=== PATIENT | female | born 1965 | race Caucasian/White ===

== ENCOUNTER → 2018-06-08 | Outpatient (CLI) | payer BC ==
[~2018-06-08] MED LIST: ALBU2.5V52 INH; ALPR-557 GT; Alprazolam PO; BSP5T PO; CEFD300C3 PO; CPR500T PO; FEXO-14 PO; HYOS0.1217 PO; IBUP200T48 PO; LEVO750T24 PO; MTR500T PO; NFNEB10T PO; OXYC-12 PO; PRD20T PO; SERT50TA9 PO
[2018-06-08 08:25] LABS: BASOPHILS % (AUTO) 0 % (0-10); EOSINOPHILS # (AUTO) 0.2 10^3/uL (0.0-0.3); EOSINOPHILS % (AUTO) 3 % (0-10); HEMATOCRIT 41 % (35-52); HEMOGLOBIN 14.3 G/DL (11.5-16.0); LYMPHOCYTES # (AUTO) 2.2 X 10^3 (1.0-4.0); LYMPHOCYTES % (AUTO) 28 % (12-44); MEAN CORPUSCULAR HEMOGLOBIN 32 PG (25-34); MEAN CORPUSCULAR HGB CONC 35 G/DL (32-36); MEAN CORPUSCULAR VOLUME 91 FL (80-99); MEAN PLATELET VOLUME 9.1 FL (7.4-10.4); MONOCYTES # (AUTO) 0.6 X 10^3 (0.0-1.0); MONOCYTES % (AUTO) 8 % (0-12); NEUTROPHILS # (AUTO) 4.7 X 10^3 (1.8-7.8); NEUTROPHILS % (AUTO) 61 % (42-75); PLATELET COUNT 340 10^3/uL (130-400); RED BLOOD COUNT 4.51 10^6/uL (4.35-5.85); RED CELL DISTRIBUTION WIDTH 12.2 % (10.0-14.5); WHITE BLOOD COUNT 7.7 10^3/uL (4.3-11.0)
[2018-06-08 08:53] LABS: ALANINE AMINOTRANSFERASE 16 U/L (0-55); ALBUMIN 4.5 GM/DL (3.2-4.5); ALKALINE PHOSPHATASE 90 U/L (40-136); BILIRUBIN,TOTAL 0.4 MG/DL (0.1-1.0); BUN/CREATININE RATIO 14; CARBON DIOXIDE 24 MMOL/L (21-32); CHLORIDE 107 MMOL/L (98-107); CHOLESTEROL 193 MG/DL (< 200); CREATININE SERUM 0.86 MG/DL (0.60-1.30); GFR ESTIMATED > 60; GLUCOSE 103 MG/DL (70-105); HDL CHOLESTEROL 55 MG/DL (40-60); POTASSIUM 4.2 MMOL/L (3.6-5.0); SODIUM 140 MMOL/L (135-145); TRIGLYCERIDES 131 MG/DL (<150); URIC ACID 5.7 MG/DL (2.6-7.2); VLDL CHOLESTEROL 26 MG/DL (5-40)
[2018-06-08 09:14] LABS: FREE T4 (FREE THYROXINE) 1.11 NG/DL (0.70-1.48)
[2018-06-08 09:15] LABS: ERYTHROCYTE SEDIMENTATION RATE 33 MM/HR (0-30)
== END ==
LOC: LAB 07:47
PROVIDERS: ATTEND Family Medicine
DX: Z00.00 Encounter for general adult medical examination without abnormal findings (principal); R53.83 Other fatigue; M85.80 Other specified disorders of bone density and structure, unspecified site; M25.50 Pain in unspecified joint; D64.9 Anemia, unspecified; Z83.3 Family history of diabetes mellitus
CPT/HCPCS: 36415; 80053; 80061; 82306; 82607; 83036; 83540; 84439; 84443; 84550; 85025; 85652; 86038; 86060; 86430

== ENCOUNTER → 2018-06-15 | Outpatient (CLI) | payer BC ==
--- NOTE | 2018-06-15 17:07 | Diagnostic Imaging Report ---
INDICATION: Routine screening. Comparison is made with prior mammograms from 06/20/2015 and 08/27/2011. 2-D and 3-D bilateral screening mammography was performed. The current study was also evaluated with a Computer Aided Detection (CAD) system. FINDINGS: Scattered fibronodular densities are identified bilaterally. The parenchymal pattern is stable. No mass or malignant-appearing microcalcifications are seen. There are benign calcifications. The axillae are unremarkable. IMPRESSION: No mammographic features suspicious for malignancy are identified. ACR BI-RADS Category 2: Benign findings. Result letter will be mailed to the patient. Note: At least 10% of breast cancer is not imaged by mammography. Dictated by: Dictated on workstation # [id number]
== END ==
LOC: RAD 07:48
PROVIDERS: ATTEND Family Medicine
DX: Z12.31 Encounter for screening mammogram for malignant neoplasm of breast (principal)
CPT/HCPCS: 77067

== ENCOUNTER → 2019-11-15 | Outpatient (CLI) | payer BC ==
--- NOTE | 2019-11-15 19:50 | Diagnostic Imaging Report ---
INDICATION: Routine screening. Comparison is made with prior mammograms from 06/15/2018 and 06/20/2015. 2-D and 3-D bilateral screening mammography was performed. The current study was also evaluated with a Computer Aided Detection (CAD) system. 3-D tomosynthesis was also performed and reviewed. FINDINGS: Both breasts are heterogeneously dense, limiting the sensitivity of mammography. Right breast is unremarkable. A circumscribed nodule has developed in the superior left breast 6 to 7 cm from the nipple at approximately 12 o'clock location. Further evaluation with ultrasound is recommended. No spiculated mass or malignant-appearing microcalcifications are seen. Axillae are unremarkable. IMPRESSION: Circumscribed nodule at approximately 11-12 o'clock location of the left breast 6 to 7 cm from the nipple. This may represent a small cyst. Further evaluation with ultrasound is recommended. ACR BI-RADS Category 0: Incomplete. (Needs additional imaging evaluation). Result letter will be mailed to the patient. Note: At least 10% of breast cancer is not imaged by mammography. Dictated by: Dictated on workstation # [id number]
== END ==
LOC: RAD 15:32
PROVIDERS: ATTEND Family Medicine
DX: Z12.31 Encounter for screening mammogram for malignant neoplasm of breast (principal); N63.22 Unspecified lump in the left breast, upper inner quadrant
CPT/HCPCS: 77067

== ENCOUNTER → 2019-11-23 | Outpatient (CLI) | payer BC ==
--- NOTE | 2019-11-23 12:05 | Diagnostic Imaging Report ---
Indication: Left breast nodule. Studies performed for further evaluation. Correlation is made with mammogram from 11/15/2019. Sonographic interrogation upper left breast was performed. At 11:30 location, 6 cm from the nipple there is a circumscribed simple appearing cyst measuring 5 mm x 5 mm x 4 mm. This correlates with the nodule noted mammographically. No solid mass is seen. There is no internal vascularity. IMPRESSION: BI-RADS Category 2 Simple cyst 11:30 location left breast, 6 cm from the nipple. This correlates in size and location to the mammographic density. Patient may return to routine annual screening mammography. ACR BI-RADS Category 2: Benign findings. Dictated by: Dictated on workstation # [id number]
== END ==
LOC: RAD 10:53
PROVIDERS: ATTEND Family Medicine
DX: N60.02 Solitary cyst of left breast (principal)
CPT/HCPCS: 76642

== ENCOUNTER → 2020-04-29 | Outpatient (CLI) | payer BC ==
[2020-04-29 08:08] LABS: BASOPHILS % (AUTO) 0 % (0-10); EOSINOPHILS # (AUTO) 0.2 10^3/uL (0.0-0.3); EOSINOPHILS % (AUTO) 2 % (0-10); HEMATOCRIT 41 % (35-52); HEMOGLOBIN 13.9 G/DL (11.5-16.0); LYMPHOCYTES # (AUTO) 1.9 X 10^3 (1.0-4.0); LYMPHOCYTES % (AUTO) 23 % (12-44); MEAN CORPUSCULAR HEMOGLOBIN 31 PG (25-34); MEAN CORPUSCULAR HGB CONC 34 G/DL (32-36); MEAN CORPUSCULAR VOLUME 92 FL (80-99); MONOCYTES # (AUTO) 0.6 X 10^3 (0.0-1.0); MONOCYTES % (AUTO) 7 % (0-12); NEUTROPHILS # (AUTO) 5.5 X 10^3 (1.8-7.8); NEUTROPHILS % (AUTO) 68 % (42-75); PLATELET COUNT 362 10^3/uL (130-400); RED CELL DISTRIBUTION WIDTH 12.2 % (10.0-14.5); WHITE BLOOD COUNT 8.2 10^3/uL (4.3-11.0)
[2020-04-29 08:21] LABS: CHLORIDE 103 MMOL/L (98-107)
[2020-04-29 08:22] LABS: ALBUMIN 4.3 GM/DL (3.2-4.5); SODIUM 137 MMOL/L (135-145)
[2020-04-29 08:23] LABS: CALCIUM 9.4 MG/DL (8.5-10.1)
[2020-04-29 08:24] LABS: GLUCOSE 108 MG/DL (70-105); TOTAL PROTEIN 7.8 GM/DL (6.4-8.2); TRIGLYCERIDES 224 MG/DL (<150); VLDL CHOLESTEROL 45 MG/DL (5-40)
[2020-04-29 08:25] LABS: CARBON DIOXIDE 21 MMOL/L (21-32)
[2020-04-29 08:26] LABS: BILIRUBIN,TOTAL 0.6 MG/DL (0.1-1.0)
[2020-04-29 08:28] LABS: ALKALINE PHOSPHATASE 89 U/L (40-136); CREATININE SERUM 0.88 MG/DL (0.60-1.30); GFR ESTIMATED > 60
[2020-04-29 08:29] LABS: BUN/CREATININE RATIO 16; CHOLESTEROL 217 MG/DL (< 200)
[2020-04-29 08:30] LABS: HDL CHOLESTEROL 58 MG/DL (40-60)
[2020-04-29 08:31] LABS: ALANINE AMINOTRANSFERASE 18 U/L (0-55)
[2020-04-29 08:52] LABS: FREE T4 (FREE THYROXINE) 0.94 NG/DL (0.70-1.48)
== END ==
LOC: LAB 07:43
PROVIDERS: ATTEND Nurse Practitioner Family
DX: Z13.220 Encounter for screening for lipoid disorders (principal); Z00.00 Encounter for general adult medical examination without abnormal findings; I10 Essential (primary) hypertension; E55.9 Vitamin D deficiency, unspecified
CPT/HCPCS: 36415; 80053; 80061; 82306; 84439; 84443; 85025

== ENCOUNTER 2020-05-19 05:45 | Outpatient (RCR) | payer BC | END 2020-08-17 | disposition home or self-care (01) | LOC: PREOP 05:45 | PROVIDERS: ATTEND Surgery | DX: Z01.818 Encounter for other preprocedural examination (principal) ==

== ENCOUNTER → 2020-12-11 | Outpatient (CLI) | payer BC | LOC: LAB 07:34 | PROVIDERS: ATTEND Nurse Practitioner Family | DX: E55.9 Vitamin D deficiency, unspecified (principal) | CPT/HCPCS: 36415; 82306 ==

== ENCOUNTER → 2020-12-11 | Outpatient (CLI) | payer BC ==
[2020-12-11 08:20] LABS: ALANINE AMINOTRANSFERASE 18 U/L (0-55); ALKALINE PHOSPHATASE 97 U/L (40-136); BILIRUBIN,TOTAL 0.3 MG/DL (0.1-1.0); BUN/CREATININE RATIO 13; CALCIUM 9.1 MG/DL (8.5-10.1); CARBON DIOXIDE 21 MMOL/L (21-32); CHLORIDE 103 MMOL/L (98-107); CHOLESTEROL 189 MG/DL (< 200); CREATININE SERUM 0.92 MG/DL (0.60-1.30); GFR ESTIMATED > 60; GLUCOSE 105 MG/DL (70-105); HDL CHOLESTEROL 52 MG/DL (40-60); POTASSIUM 4.2 MMOL/L (3.6-5.0); SODIUM 136 MMOL/L (135-145); TOTAL PROTEIN 7.5 GM/DL (6.4-8.2); TRIGLYCERIDES 227 MG/DL (<150); VLDL CHOLESTEROL 45 MG/DL (5-40)
== END ==
LOC: LAB 07:31
PROVIDERS: ATTEND Family Medicine
DX: E78.5 Hyperlipidemia, unspecified (principal)
CPT/HCPCS: 36415; 80053; 80061

== ENCOUNTER 2021-03-02 05:40 | Outpatient (CLI) | payer BC ==
[~2021-03-02] VITALS: Ht 167.6 cm; Wt 79.1 kg
== END 2021-03-03 07:36 | disposition home or self-care (01) ==
LOC: PREOP 05:40 → EDSTATUS 08:30 → PREOP 03-03 07:36
PROVIDERS: ATTEND Surgery
DX: Z01.812 Encounter for preprocedural laboratory examination (principal); Z12.11 Encounter for screening for malignant neoplasm of colon

== ENCOUNTER 2021-03-09 06:54 | Day surgery (SDC) | payer BC ==
[~2021-03-09] VITALS: Ht 167.6 cm; Wt 79.1 kg
[~2021-03-09 06:54] MED LIST changes: +MIDAZOLAM 2 MG/2 ML (VERSED) VIAL ONE; +PROPOFOL INJECTION 50 ML IV ONE
[2021-03-09] MEDS ORDERED: LACTATED RINGERS 1,000 ML IV STA (07:11)
[2021-03-09] MEDS ORDERED: LACTATED RINGERS 1,000 ML IV ONE (07:12)
[2021-03-09 07:34] VITALS: BP 132/80
[2021-03-09] MEDS ORDERED: VENL37.52 PO (07:59)
[2021-03-09] MEDS ORDERED: PROPOFOL INJECTION 50 ML IV ONE (08:19)
[2021-03-09 08:50] VITALS: BP 99/56
[2021-03-09 08:55] VITALS: BP 108/69
[2021-03-09 09:00] VITALS: BP 112/72
--- NOTE | 2021-03-09 09:09 | Progress Note-Post Operative ---
Post-Operative Progess Note Surgeon (s)/Sack Sorter (s) Surgeon MARVIN OROZCO DO Sack Sorter: FANTASMA Albarran Pre-Operative Diagnosis screening colonoscopy Post-Operative Diagnosis polyps int hemorrhoids Procedure & Operative Findings Date of Procedure 03/09/21 Procedure Performed/Findings Colon with hot bx Anesthesia Type IV sedation by GROUND SYSTEMS ENGINEER Estimated Blood Loss Estimated blood loss (mL): scant Specimens/Packing Specimens Removed asc colon polyp sigmoid polyp rectal polyp MARVIN OROZCO DO Mar 09, 2021 09:09
--- NOTE | 2021-03-09 09:10 | Endoscopy Discharge Instruct ---
Endo Procedure/Findings Findings 1.: Polyp 2.: Internal Hemorrhoids Discharge Instructions - Activity: You might feel a little sleepy until tomorrow. This is due to the medicine you received to relax you. Until tomorrow, you should: NOT drive a car, operate machinery or power tools. NOT drink any alcoholic beverages. NOT make any important decisions or sign importortant papers. Do not return to work until tomorrow, unless otherwise instructed. Resume previous activities tomorrow. Diet: Start by taking liquids. If you tolerate liquids, advance to solid food. 1.: Colonoscopy in 1 year Notify Physician - If you experience excessive bleeding, unusual abdominal pain, fever, or chest pain, contact your doctor immediately. MARVIN OROZCO DO Mar 09, 2021 09:10
[2021-03-09 09:36] VITALS: BP 118/70
--- NOTE | 2021-03-09 12:43 | Anesthesia-General Post-Op ---
MAC Patient Condition Mental Status/LOC: Same as Preop Cardiovascular: Satisfactory Nausea/Vomiting: Absent Respiratory: Satisfactory Pain: Controlled Complications: Absent Post Op Complications Complications None Follow Up Care/Instructions Patient Instructions None needed. Anesthesiology Discharge Order Discharge Order Patient is doing well, no complaints, stable vital signs, no apparent adverse anesthesia problems. No complications reported per nursing. RAFAEL JARQUIN CRNA Mar 09, 2021 12:43
--- NOTE | 2021-03-10 05:11 | OPERATIVE REPORT ---
DATE OF SERVICE: PREOPERATIVE DIAGNOSIS: Screening colonoscopy. POSTOPERATIVE DIAGNOSES: Colon polyps, internal hemorrhoids. PROCEDURE: Colonoscopy with hot biopsy. SURGEON: Ishan Davis DO BUNK HOUSE WORKER: Ashok Simmons, MS3. ANESTHESIA: IV sedation by the SUPERVISOR COMMUNICATIONS AND SIGNALS. SPECIMEN: Ascending colon polyp taken in 8 pieces, also biopsy from the sigmoid polyp and a rectal polyp. BLOOD LOSS: Scant. FLUIDS: Per anesthesia. POSTOPERATIVE CONDITION: Stable. INDICATION FOR PROCEDURE: The patient is a 56-year-old female who has never had a colonoscopy, needs one for screening. FINDINGS: The patient had a large polyp bigger than a centimeter in the ascending colon that was taken out in pieces. She also had a polyp in the sigmoid colon, one in the rectum and she had some internal hemorrhoids. PROCEDURE NOTE: After informed consent was obtained, the patient was brought to the endoscopy suite, placed in bed in left lateral decubitus position. She was administered IV sedation by the SUPERVISOR COMMUNICATIONS AND SIGNALS who then monitored her vitals the entire time, heart rate, blood pressure and pulse ox and the scope was inserted, pushed all the way to about cm and just outside the cecum and ascending colon over a fold, saw a large flat polyp measuring more than a centimeter, started doing hot biopsies to remove this, took about 8 biopsies, I believe I was able to move all of it. Pushed into the cecum, took a picture of appendiceal orifice and then slowly withdrew the scope insufflating the circumferential ordaz looking the cecum, up the ascending colon to the hepatic flexure, then down the transverse colon, splenic flexure, into the descending colon down in the sigmoid. In the sigmoid, saw another flat polyp, did a hot biopsy of this and then into the rectum, saw another polyp in the rectum, did another hot biopsy and then pulled the scope out and on the way out, took picture of the internal hemorrhoids. The patient tolerated the procedure. She was recovered in endoscopy suite. Job ID: [id number] DocumentID: [id number] Dictated Date: 03/09/2021 21:46:37 Ware Finisher Date: 03/10/2021 05:11:08 Dictated By: ISHAN DAVIS DO
== END 2021-03-09 09:35 | disposition home or self-care (01) ==
LOC: ENDO 06:54
PROVIDERS: ATTEND Surgery
DX: Z12.11 Encounter for screening for malignant neoplasm of colon (principal); D12.2 Benign neoplasm of ascending colon; K62.1 Rectal polyp; K63.5 Polyp of colon; K64.8 Other hemorrhoids; I10 Essential (primary) hypertension; M54.30 Sciatica, unspecified side; F41.9 Anxiety disorder, unspecified; Z79.899 Other long term (current) drug therapy; Z88.5 Allergy status to narcotic agent; Z88.0 Allergy status to penicillin; Z90.49 Acquired absence of other specified parts of digestive tract
CPT/HCPCS: 88305

== ENCOUNTER → 2021-04-28 | Outpatient (CLI) | payer BC ==
[~2021-04-28] MED LIST changes: -MIDAZOLAM 2 MG/2 ML (VERSED) VIAL ONE; -PROPOFOL INJECTION 50 ML IV ONE; +VENL37.52 PO
[2021-04-29 07:30] LABS: RAGWEED RAST <0.10 kU/L (0.00-0.09)
[2021-04-29 07:31] LABS: ALTERNARIA MOLD RAST <0.10 kU/L (0.00-0.09)
== END ==
LOC: LAB 07:33
PROVIDERS: ATTEND Nurse Practitioner Family
DX: L20.9 Atopic dermatitis, unspecified (principal)
CPT/HCPCS: 36415; 86003

== ENCOUNTER → 2021-04-28 | Outpatient (CLI) | payer BC ==
[2021-04-28 08:01] LABS: BASOPHILS # (AUTO) 0.1 10^3/uL (0.0-0.1); BASOPHILS % (AUTO) 1 % (0-10); EOSINOPHILS # (AUTO) 0.2 10^3/uL (0.0-0.3); EOSINOPHILS % (AUTO) 2 % (0-10); HEMATOCRIT 43 % (35-52); HEMOGLOBIN 14.2 g/dL (11.5-16.0); LYMPHOCYTES # (AUTO) 1.8 10^3/uL (1.0-4.0); LYMPHOCYTES % (AUTO) 22 % (12-44); MEAN CORPUSCULAR HEMOGLOBIN 31 pg (25-34); MEAN CORPUSCULAR HGB CONC 33 g/dL (32-36); MEAN CORPUSCULAR VOLUME 93 fL (80-99); MEAN PLATELET VOLUME 8.9 fL (9.0-12.2); MONOCYTES # (AUTO) 0.5 10^3/uL (0.0-1.0); MONOCYTES % (AUTO) 6 % (0-12); NEUTROPHILS # (AUTO) 5.8 10^3/uL (1.8-7.8); NEUTROPHILS % (AUTO) 68 % (42-75); PLATELET COUNT 387 10^3/uL (130-400); WHITE BLOOD COUNT 8.4 10^3/uL (4.3-11.0)
[2021-04-28 08:11] LABS: ALBUMIN 4.2 GM/DL (3.2-4.5); CHLORIDE 106 MMOL/L (98-107); POTASSIUM 4.2 MMOL/L (3.6-5.0); SODIUM 140 MMOL/L (135-145)
[2021-04-28 08:12] LABS: CALCIUM 9.4 MG/DL (8.5-10.1)
[2021-04-28 08:13] LABS: TRIGLYCERIDES 96 MG/DL (<150); VLDL CHOLESTEROL 19 MG/DL (5-40)
[2021-04-28 08:14] LABS: GLUCOSE 106 MG/DL (70-105); TOTAL PROTEIN 7.4 GM/DL (6.4-8.2)
[2021-04-28 08:15] LABS: CARBON DIOXIDE 21 MMOL/L (21-32)
[2021-04-28 08:16] LABS: BILIRUBIN,TOTAL 0.3 MG/DL (0.1-1.0)
[2021-04-28 08:17] LABS: ALKALINE PHOSPHATASE 79 U/L (40-136); CREATININE SERUM 0.86 MG/DL (0.60-1.30); GFR ESTIMATED > 60
[2021-04-28 08:18] LABS: CHOLESTEROL 182 MG/DL (< 200)
[2021-04-28 08:19] LABS: BUN/CREATININE RATIO 12
[2021-04-28 08:20] LABS: ALANINE AMINOTRANSFERASE 12 U/L (0-55); HDL CHOLESTEROL 64 MG/DL (40-60)
== END ==
LOC: LAB 07:29
PROVIDERS: ATTEND Family Medicine
DX: I10 Essential (primary) hypertension (principal); E78.5 Hyperlipidemia, unspecified; E11.9 Type 2 diabetes mellitus without complications
CPT/HCPCS: 36415; 80053; 80061; 83036; 84439; 84443; 85025

== ENCOUNTER → 2022-08-10 | Outpatient (CLI) | payer BC ==
--- NOTE | 2022-08-10 12:48 | Diagnostic Imaging Report ---
Indication: Routine screening. Comparison is made with prior mammogram 11/15/2019 and 06/15/2018. 2-D and 3-D bilateral screening mammography was performed with CAD. CAD is utilized. The current study was also evaluated with a Computer Aided Detection (CAD) system. Both breast are heterogeneously dense, limiting the sensitivity of mammography. The parenchymal pattern is stable. No spiculated mass or malignant-appearing microcalcifications are seen. Axillae are unremarkable. IMPRESSION: BI-RADS Category 1 No mammographic features suspicious for malignancy are identified. ACR BI-RADS Category 1: Negative. Result letter will be mailed to the patient. Note: At least 10% of breast cancer is not imaged by mammography. Dictated by: Dictated on workstation # [id number]
== END ==
LOC: RAD 07:24
PROVIDERS: ATTEND Nurse Practitioner Family
DX: Z12.31 Encounter for screening mammogram for malignant neoplasm of breast (principal)
CPT/HCPCS: 77063; 77067

== ENCOUNTER → 2022-09-06 | Outpatient (CLI) | payer BC ==
[2022-09-06 07:39] LABS: HEMATOCRIT 41 % (35-52); MEAN CORPUSCULAR HEMOGLOBIN 32 pg (25-34); MEAN CORPUSCULAR HGB CONC 35 g/dL (32-36); MEAN CORPUSCULAR VOLUME 91 fL (80-99); PLATELET COUNT 378 10^3/uL (130-400); WHITE BLOOD COUNT 10.6 10^3/uL (4.3-11.0)
[2022-09-06 07:54] LABS: POTASSIUM 4.3 MMOL/L (3.6-5.0)
[2022-09-06 07:55] LABS: ALBUMIN 4.3 GM/DL (3.2-4.5)
[2022-09-06 07:56] LABS: CALCIUM 9.5 MG/DL (8.5-10.1)
[2022-09-06 07:57] LABS: TOTAL PROTEIN 7.8 GM/DL (6.4-8.2)
[2022-09-06 07:59] LABS: BILIRUBIN,TOTAL 0.5 MG/DL (0.1-1.0)
[2022-09-06 08:01] LABS: CREATININE SERUM 0.93 MG/DL (0.60-1.30)
== END ==
LOC: LAB 07:12
PROVIDERS: ATTEND Internal Medicine Cardiovascular Disease
DX: I25.10 Atherosclerotic heart disease of native coronary artery without angina pectoris (principal); I10 Essential (primary) hypertension; R00.2 Palpitations
CPT/HCPCS: 36415; 80053; 80061; 83036; 84443; 85027

== ENCOUNTER → 2023-04-04 | Outpatient (CLI) | payer BC ==
[2023-04-04 08:38] LABS: BASOPHILS # (AUTO) 0.1 10^3/uL (0.0-0.1); BASOPHILS % (AUTO) 1 % (0-10); EOSINOPHILS # (AUTO) 0.2 10^3/uL (0.0-0.3); EOSINOPHILS % (AUTO) 2 % (0-10); HEMATOCRIT 41 % (35-52); HEMOGLOBIN 14.3 g/dL (11.5-16.0); LYMPHOCYTES # (AUTO) 2.7 10^3/uL (1.0-4.0); LYMPHOCYTES % (AUTO) 27 % (12-44); MEAN CORPUSCULAR HEMOGLOBIN 31 pg (25-34); MEAN CORPUSCULAR HGB CONC 35 g/dL (32-36); MEAN CORPUSCULAR VOLUME 90 fL (80-99); MEAN PLATELET VOLUME 9.1 fL (9.0-12.2); MONOCYTES # (AUTO) 0.7 10^3/uL (0.0-1.0); MONOCYTES % (AUTO) 7 % (0-12); NEUTROPHILS # (AUTO) 6.2 10^3/uL (1.8-7.8); NEUTROPHILS % (AUTO) 63 % (42-75); PLATELET COUNT 349 10^3/uL (130-400); WHITE BLOOD COUNT 9.8 10^3/uL (4.3-11.0)
[2023-04-04 09:10] LABS: ALBUMIN 4.2 GM/DL (3.2-4.5); BILIRUBIN,TOTAL 0.4 MG/DL (0.1-1.0); CALCIUM 9.2 MG/DL (8.5-10.1); CREATININE SERUM 0.82 MG/DL (0.60-1.30); POTASSIUM 4.2 MMOL/L (3.6-5.0); TOTAL PROTEIN 7.7 GM/DL (6.4-8.2)
== END ==
LOC: LAB 08:25
PROVIDERS: ATTEND Nurse Practitioner Family
DX: Z00.00 Encounter for general adult medical examination without abnormal findings (principal); I10 Essential (primary) hypertension
CPT/HCPCS: 36415; 80053; 80061; 84443; 85025

== ENCOUNTER → 2023-09-05 | Outpatient (CLI) | payer BC ==
--- NOTE | 2023-09-06 11:28 | Diagnostic Imaging Report ---
INDICATION: Screening. EXAMINATION: Bilateral digital 2D and 3D screening with CAD. COMPARISON: July 2022, October 2019, and May 2018. BREAST DENSITY: 2. FINDINGS: No breast mass, spiculated lesion, architectural distortion, suspicious calcifications, or changes to suggest malignancy. IMPRESSION: Negative. ACR BI-RADS Category 1: Negative. Result letter will be mailed to the patient. Note: At least 10% of breast cancer is not imaged by mammography. Dictated by: Dictated on workstation # [id number]
== END ==
LOC: RAD 07:56
PROVIDERS: ATTEND Family Medicine
DX: Z12.31 Encounter for screening mammogram for malignant neoplasm of breast (principal)
CPT/HCPCS: 77063; 77067

== ENCOUNTER → 2023-10-24 | Outpatient (CLI) | payer BC ==
--- NOTE | 2023-10-24 15:55 | Diagnostic Imaging Report ---
PROCEDURE: MR imaging cervical spine without contrast. TECHNIQUE: Multiplanar, multisequence MR imaging of the cervical spine was performed without contrast. INDICATION: Cervical radiculopathy. COMPARISON: Cervical spine radiographs 03/11/2016. FINDINGS: Normal alignment. Vertebral body heights are preserved. Normal bone marrow signal. No abnormal signal in the cervical spinal cord. The visualized paravertebral soft tissues are unremarkable. C2-C3: No spinal canal or neuroforaminal narrowing. C3-C4: No spinal canal or neuroforaminal narrowing. C4-C5: Broad-based disc bulging results in moderate to severe spinal canal stenosis. Severe left and moderate right neuroforaminal narrowing. C5-C6: Broad-based disc bulging results in severe spinal canal stenosis. Severe bilateral neuroforaminal narrowing. C6-C7: Broad-based disc bulging results in mild spinal canal narrowing. Severe right and moderate left neuroforaminal narrowing. C7-T1: No spinal canal or neuroforaminal narrowing. IMPRESSION: 1. 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 No abnormal signal in the cervical spinal cord. 2. Multilevel high-grade neuroforaminal narrowing as detailed above. Dictated by: Dictated on workstation # [id number]
== END ==
LOC: RAD 14:30
PROVIDERS: ATTEND Physician Assistant
DX: M50.121 Cervical disc disorder at C4-C5 level with radiculopathy (principal); M50.122 Cervical disc disorder at C5-C6 level with radiculopathy; M48.061 Spinal stenosis, lumbar region without neurogenic claudication
CPT/HCPCS: 72141